=== PATIENT | male | born 1960 | race Caucasian/White ===

== ENCOUNTER 2018-03-12 13:43 | Observation (INO) ==
--- NOTE | 2018-03-12 14:02 | PDOC ---
Abdomen/Flank HPI - General Chief Complaint: Abdomen Pain Stated Complaint: abd pain, return from yesterday Date Seen by Provider: 03/12/18 Time Seen by Provider: 13:48 Source: POSITIVE: Patient, Spouse Exam Limitations: POSITIVE: No limitations Nurse's Notes Reviewed & Considered: Yes - History of Present Illness Initial Comments: This is a well-developed, well-nourished, 57-year-old male, who returns to the emergency room today complaining of worsening abdominal pain. Patient was released last week from a hospital in [place] after being hospitalized for pancreatitis. He spent 3 days in the hospital and then was released. He stayed in [place] for another 3 days with a second visit to the emergency room because of increasing abdominal pain. It was felt at that time that he had normal lipase and that his symptoms were likely related to a virus. He was released to return home to [place] and return here to [place] on March 08. He presented to the emergency room here in [place] yesterday because of increasing abdominal pain. CT scan at that time showed diverticulitis in the left lower quadrant and he was discharged with prescriptions for Augmentin and Flagyl as well as [place]. He was unable to get these prescriptions filled and presented to the emergency room because of increasing pain in the left lower quadrant with radiation throughout his abdomen and into his back. He does have nausea but no vomiting and no diarrhea , denies any hematochezia or hematemesis, no hematuria or dysuria, no fever chills or sweats. He denies headache, no sore throat, no chest pain or shortness of breath, no cough. Body Location Affected: REPORTS: Abdomen Timing: REPORTS: Constant, Getting Worse Duration: >1 week Severity: Severe Quality: REPORTS: "Pain" Abdominal Pain Onset Location: REPORTS: Generalized abdomen Abdominal Pain Radiation: REPORTS: LLQ, Back Context: REPORTS: Other (recent pancreatitis) Modifying Factors: improves with: Nothing Associated Symptoms: REPORTS: Back pain, Loss of Appetite, Nausea, Other (25 lbs weight loss) Similar Symptoms Previously: Yes Recent Care Received: REPORTS: Recently Seen, Treated by MD, Hospitalized Any Prior Injuries Related to Current Complaint?: No - Patient Home Medications Home Medications: Home Medications metformin 500 mg tablet 500 mg PO BID #60 tab 02/15/18 Amoxicillin/Potassium Clav [Augmentin 875-125 Tablet] 1 ea PO BID #20 tab Hydrocodone/Acetaminophen [[place] 5-325 Tablet] 1 ea PO Q4H PRN PRN #10 tab 03/11 Metronidazole [Flagyl] 500 mg PO TID #21 tab 03/11/18 metroNIDAZOLE Tab [Flagyl Tab] 500 mg PO TID #21 tab 03/11/18 - Patient Allergies Allergies/Adverse Reactions: Allergies 3 Allergy/AdvReac Type Severity Reaction Status Date / Time No Known Allergies Allergy Verified 03/12/18 13:50 Past Medical History - heen HEENT History: Denies History Cardiovascular History: Denies History, Other (please comment) Additional Cardiovasular History: 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 Respiratory History: Denies History Gastrointestinal History: Pancreatitis Genitourinary History: Denies History Endocrine History: Type 1 Diabetes, Type 2 Diabetes (oral) Musculoskeletal History: Denies History Neurological History: Denies History Blood Disorders: Denies History Psychiatric History: Denies History Cancer History: Denies History History of MDRO: No In the Past 12 Months, Have Used or Abuse Any Substance: None Previous Surgical History: Yes Type / Date of Surgery: See above Anesthesia Reactions: No Significant Family History: No pertinent family hx ROS - Limitations ROS Limitations: No Limitations Constitution: REPORTS: Weight Loss Cardiovascular: REPORTS: Denies Cardiac Symptoms Respiratory: REPORTS: Denies Resp Symptoms Neurological: REPORTS: Denies Neuro Symptoms Gastrointestinal: REPORTS: Abdominal Pain, Nausea Endocrine: REPORTS: Elevated Glucose, Low Glucose Musculoskeletal: REPORTS: Back Pain Genitourinary: REPORTS: Denies Symptoms Eyes: REPORTS: Denies Symptoms ENT: REPORTS: Denies Symptoms Skin: REPORTS: Denies Skin Symptoms Lympathic: REPORTS: Denies Lympathic Symptoms Immunologic: POSITIVE: Denies Symptoms Psychiatric: POSITIVE: Denies Psych Symptoms Abdominal/Flank Pain PE - General Appearance General Appearance: POSITIVE: Alert, Cooperative, No Evidence of Trauma, Severe Distress - HEENT HEENT: POSITIVE: Head Inspection Nml, Eyes Inspection Nml, Ears Inspection Nml, Nose Inspection Nml, Oral/Dental Inspect. Nml, Pharynx Inspect. Nml, PERRL, EOMI - Neck Neck: POSITIVE: Normal Inspection - Respiratory Respiratory: POSITIVE: No Respiratory Distress, Breath Sounds Normal, Chest Non- Tender - Cardiovascular Cardiovascular: POSITIVE: Regular Rate and Rhythm, Heart Sounds Normal, Strong Pulses Peripheral Pulses: Radial (L): 4+ - Chest Chest: POSITIVE: Non Tender - Abdomen Abdomen: Soft: (All Quadrants), Normal Bowel Sounds: (All Quadrants), No Splenomegaly: (All Quadrants), No Hepatomegaly: (All Quadrants), No Rebound: ( All Quadrants), No Palpable Pulse: (All Quadrants), No Palpabale Mass: (All Quadrants), No Distention: (All Quadrants), Tenderness Noted: (All Quadrants) ( greatest in LLQ w rad to all quads), Guarding: (LLQ), Rigid: (LLQ) - Back Back: POSITIVE: Normal Inspection - Skin Skin: POSITIVE: Intact, Normal For Race, Warm, Dry, No Rash - Extremities Extremity: Non-Tender: (All Extremities), Normal ROM: (All Extremities), Normal Inspection: (All Extremities), Pelvis Stable: (All Extremities) - Neurological Neurological: POSITIVE: Affect Apporpriate, Oriented X3, Motor Normal, Sensation Normal - Psychological Psychiatric: POSITIVE: Affect Appropriate, Mood Appropriate Abdomen Progress - Results Reviewed by me Xrays/CTs/US Reviewed by me: Yes Discussed with Radiologist: Yes Lab Results Reviewed by Me: Yes CBC and BMP: 03/12/18 14:05 03/12/18 14:05 - Patient's Progress Pain Medication Addressed: POSITIVE: Yes Status: POSITIVE: Improved MDM / ED Course: Patient was evaluated, an IV started, blood drawn and sent to the lab for studies, CT of chest and abdomen were obtained. Findings: CBC is within normal limits. Blood gases show pH is 7.46, PCO2 of 33 , bicarbonate 24, base excess of 0. Amylase is 49, lipase is 43. CMP shows a glucose of 223, AST is 17. Lactic acid is 3.1, magnesium is 1.7. CT scan of his chest and abdomen shows no acute cardiopulmonary decompensation with no evidence of previously seen left lower lobe nodule, no acute findings in the abdomen with evidence of chronic pancreatitis present but no acute findings present. Assessment: Abdominal pain Plan: Patient being admitted. - Consult Consult (If Yes, Name of Consulting MD & Time Called): Yes (Dr. Mccarthy) Consulting MD will see pt:: POSITIVE: [facility] [place] Admit Counseled: POSITIVE: Patient, Family, RE: Lab Results, RE: Radiology Results, RE : DX, RE: Need for F/U Patient Care Time - Estimated PCT Patient Care Time (In Minutes): 45 Vital Signs - VS Reviewed Vital Signs Reviewed: Yes Discharge Clinical Impression: Abdominal pain Discharge Disposition: Admit to Inpatient Condition: Stable Date Decision to Admit to Inpatient: 03/12/18 Time Decision to Admit to Inpatient: 16:40
[2018-03-12] MEDS ORDERED: MORPHINE SULFATE 4 MG/1 ML IVP ONE (14:04)
[2018-03-12] MEDS ORDERED: ONDANSETRON 4 MG/2 ML VIAL IVP ONE (14:04)
[2018-03-12] MEDS ORDERED: Sodium Chloride 0.9% 1,000 ML PRIMARY IV ONE ×3 (14:16→14:53)
[2018-03-12] MEDS ORDERED: LORazepam 2 MG/1 ML VIAL IVP ONE (14:16)
[2018-03-12] MEDS ORDERED: LORazepam 2 MG/1 ML VIAL ONE (14:16)
[2018-03-12 14:22] LABS: VENOUS PH 7.46 (7.32-7.42)
[2018-03-12 14:38] LABS: BASOPHILS % (AUTO) 1.8 % (0-1); EOSINOPHILS # (AUTO) 0.21 10*3/UL; EOSINOPHILS % (AUTO) 3.9 % (0-8); Hematocrit [HCT] 42.7 % (42.0-52.0); Hemoglobin [HGB] 14.4 g/dL (14.0-18.0); LYMPHOCYTES # (AUTO) 2.19 10*3/uL; MEAN CORPUSCULAR HGB CONC 33.7 g/dL (33-37); MEAN CORPUSCULAR VOLUME 94.9 FL (80-90); MEAN PLATELET VOLUME 9.8 FL (7.4-12.2); MONOCYTES # (AUTO) 0.29 10*3/UL (0.3-0.8); MONOCYTES % (AUTO) 5.3 % (5-15); NEUTROPHILS # (AUTO) 2.66 10*3/UL; NEUTROPHILS % (AUTO) 48.8 % (50-80)
[2018-03-12 14:41] LABS: PLATELET MORPHOLOGY COMMENT NORMAL MORPHOLOGY (NORM); RBC MORPHOLOGY COMMENT NORMAL MORPHOLOGY (NORM); WBC MORPHOLOGY COMMENT NORMAL MORPHOLOGY (NORM)
[2018-03-12 14:47] LABS: BLOOD UREA NITROGEN 16 mg/dL (7-22); LIPASE 43 IU/L (23-300); SERUM ALBUMIN 4.2 g/dL (3.5-4.8)
[2018-03-12] MEDS ORDERED: Piperacillin/Tazobactam Inj 3.375 GM in Sodium Chloride 0.9% 100 ML IV ONE (16:01)
[2018-03-12] MEDS ORDERED: metroNIDAZOLE 500mg (Premix) 500 MG/100 ML BAG IV ONE (16:01)
--- NOTE | 2018-03-12 16:03 | DI ---
CT Chest W Contrast 03/12/2018 2:04 PM History: [facility] [place]lung nodule Comparison: CT abdomen/pelvis 03/11/2018. Technique: Multiple sequential images were obtained from the thoracic inlet through the lesser trocha nters in the axial, coronal, and sagittal planes. A total of 75 mL of Isovue intravenous contrast mat erial was administered intravenously. Oral contrast material was not also employed. There was no imme diate complication. Findings: Chest: There is no pneumothorax, consolidation, or pleural effusion. The left lower lobe pulmonary nodule no naty in the prior exam is no longer present, most likely representing artifact from atelectasis. Bibas ilar dependent subpleural groundglass opacities and linear densities most likely represent atelectasi s in the absence of additional clinical history. Subpleural cysts are noted in the upper lungs bilate rally, favored to represent paraseptal emphysema. The thyroid demonstrates normal CT morphology. There is no hilar or mediastinal lymphadenopathy. Hear t size is normal without pericardial effusion. The great vessels demonstrate normal course and calibe r with scattered atheromatous aortic calcifications. The trachea and central airways are patent. The esophagus follows a normal course and caliber. No axillary lymphadenopathy. Extrathoracic soft tissues are within normal limits. Multilevel degener ative disc disease of the thoracic spine is noted. There are degenerative changes of the bilateral ac romioclavicular and left glenohumeral joints. Abdomen/Pelvis: Coarse calcifications are again noted in the pancreas, a finding most commonly associated with chroni c pancreatitis. The liver, gallbladder, spleen, adrenal glands, and kidneys are normal in appearance. Hollow viscus organs demonstrate normal course and caliber. There is no free intraperitoneal air or f luid. The appendix is well-visualized and is normal. There is no abdominopelvic lymphadenopathy. The abdominal mesentery and great vessels are unremarkable. The ureters and urinary bladder are normal appearance without evidence of obstructive uropathy. The p rostate is mildly enlarged and contains coarse calcifications. The osseous structures are not significantly changed. There are no aggressive osseous lesions. Impression: 1. No CT evidence of acute cardiopulmonary or intra-abdominal/pelvic pathology. 2. The left lower lobe nodule noted on the comparison CT is not present on this exam. 3. The borderline wall thickening of the colon noted on the comparison examination is not present on this exam. 4. The remainder of the abdomen/pelvis exam is not significantly changed.
[2018-03-12] MEDS ORDERED: LIDOCAINE W/ SODIUM BICARB 0.5 ML SYR SUBD PRN (17:40)
[2018-03-12] MEDS ORDERED: CALCIUM CARBONATE 500 MG (TUMS) CHEWABLE TABLET PO PRN (17:40)
[2018-03-12] MEDS ORDERED: ACETAMINOPHEN 325 MG TABLET PO PRN (17:40)
[2018-03-12] MEDS ORDERED: ONDANSETRON 4 MG/2 ML VIAL IVP PRN (17:40)
[2018-03-12] MEDS ORDERED: DOCUSATE 100 MG CAPSULE PO PRN (17:40)
[2018-03-12 17:43] LABS: BILIRUBIN,URINE NEGATIVE (NEG); CLARITY,URINE CLEAR (CLEAR); COLOR,URINE YELLOW (Y); GLUCOSE, URINE (UA) 250 mg/dL (NEG); OCCULT BLOOD,URINE NEGATIVE (NEG); PROTEIN,URINE NEGATIVE (NEG); UROBILINOGEN,URINE 0.2 EU/dL (0.2)
[2018-03-12] MEDS: Sodium Chloride 0.9% 1,000 ML PRIMARY IV SCH ×2 (17:50→21:08)
[2018-03-12 17:59] LABS: URINE SAMPLE TYPE CLEAN CATCH
[2018-03-12 18:00] LABS: AMPHETAMINE SCREEN POSITIVE (NEG); CANNABINOID SCREEN,URINE NEGATIVE (NEG); COCAINE SCREEN NEGATIVE (NEG); METHADONE URINE SCREEN NEGATIVE (NEG); METHAMPHETAMINES SCREEN,URINE POSITIVE (NEG); OPIATE SCREEN,URINE POSITIVE (NEG); URINE SPECIFIC GRAVITY - MAN 1.015
[2018-03-12 18:16] LABS: URINE SAMPLE TYPE CLEAN CATCH URINE
[2018-03-12] MEDS: HYDROmorphone 2 MG/1 ML IVP PRN (18:42)
--- NOTE | 2018-03-12 19:17 | PDOC ---
HPI - History of Present Illness Date of Service: 03/12/18 Time of Service: 19:12 Chief Complaint: Abdominal pain History of Present Illness: This very pleasant 57-year-old male who recently had a bout of acute pancreatitis in [place], of unclear etiology with normal triglycerides on my review of the records, no recent alcohol use, and presumably normal gallbladder by CT scan there. He also notably has diabetes mellitus type II that was diagnosed over the summer and smokes tobacco. He comes in accompanied by his with complaint of worsening abdominal pain and repeat CT scan today showed resolution of bowel wall thickening that was noted on yesterday's CT scan. He was diagnosed with colitis history placed on Augmentin and Flagyl which really have not made a difference in his abdominal pain at all. Denies any fever. He states that his pain is located in the umbilical/periumbilical area. He's had nausea and vomiting with it but no diarrhea. He did not have any nausea or vomiting when his abdominal pain started in [place] however. The patient states she's never had pancreatitis before but he gets frequent onset of back pain sometimes with radiating discomfort into the legs but not always. There is been no association with food and the patient's states that she has been keeping close watch of this. Morphine makes the pain better. He is unclear what makes it worse. He has never had abdominal surgery. Today's CT scan showed calcifications although there were no reports of calcifications in [place] on their CT scan results. No abdominal MRI scan was done although total bilirubin has been consistently elevated in the 1.4-2.4 range. Liver enzymes have been normal throughout this episode and lipase and amylase were not elevated on today's admission although lipase was in the 2000s range in [place]. He denied any drug use to me although his urine drug screen is positive for amphetamines Past Medical History Medical History: 1. DMII, no complications, well controlled, recent HbA1c at 7.1 %. 2. tobacco abuse. 3. recent pancreatitis Surgical History: 1. arm surgery. 2. GAS abscess on neck drained with I and D in 2007. Pertinent Family History: father of complications of diabetes mellitus Tobacco Use: Current Every Day Smoker Do you dip or chew tobacco: No In the Past 12 Months, Have Used or Abuse Any of the Following Substance: None Alcohol Use: Rarely Medication / Allergies Home Medications: Home Medications 3 Medication Instructions Recorded Confirmed Type metformin 500 mg tablet 500 mg PO BID #60 tab 02/15/18 03/12/18 Rx Amoxicillin/Potassium Clav 1 ea PO BID #20 tab 03/11/18 03/12/18 Rx [Augmentin 875-125 Tablet] Hydrocodone/Acetaminophen [[place] 1 ea PO Q4H PRN PRN #10 tab 03/11/18 03/12/18 Rx 5-325 Tablet] Metronidazole [Flagyl] 500 mg PO TID #21 tab 03/11/18 03/12/18 Rx metroNIDAZOLE Tab [Flagyl Tab] 500 mg PO TID #21 tab 03/11/18 03/12/18 Rx Allergies/Adverse Reactions: Allergies 3 Allergy/AdvReac Type Severity Reaction Status Date / Time No Known Allergies Allergy Verified 03/12/18 13:50 Review of Systems - Review of Systems All Systems: Reviewed & No Additional Complaints Except as Stated (I did a 12 point review of systems and it was negative other than that described in the history of present illness, with exceptions noted below.) - Gastrointestinal Gastrointestinal / Abdominal: REPORTS: Nausea, Abdominal Pain Exam - Vitals Vital Signs: Vital Signs Temperature 97.5 F Temperature Source Temporal Artery Scan Pulse Rate [Pulse Oximeter 55 Right] Pulse Rate 70 Respiratory Rate 17 Blood Pressure [Left Arm] 108/71 Blood Pressure 114/70 Pulse Ox 91 Oxygen Delivery Method Room Air Height 5 ft 10 in Weight 157 lb 4 oz - General General Appearance: No Acute Distress, Cooperative - Head Head Exam: Normal Inspection, Normocephalic, Atraumatic - Eye Eye Exam: POSITIVE: No Scleral Icterus - ENT ENT Exam: POSITIVE: Mucous Membranes Dry - Neck Neck Exam: Normal Inspection, No Lymphadenopathy, No Thyromegaly, JVP is not Raised - Respiratory Respiratory Exam: POSITIVE: Clear to Auscultation - Bilaterally, Breathing Non Labored, Normal to Percussion and Palpation - Cardiovascular Cardiovascular Exam: POSITIVE: RRR, No Murmur, No Clicks, No Gallops, No Rubs, No JVD - GI/Abdominal GI/Abdominal Exam: POSITIVE: Normal Bowel Sounds, Non Distended, Soft Additional GI/Abdominal Exam Details: somewhat tender to palpation - Rectal Rectal Exam: POSITIVE: Deferred - External Exam: POSITIVE: Deferred Exam: POSITIVE: Deferred - Extremities Extremities Exam: POSITIVE: No Clubbing Present, No Edema Present, No Cyanosis Present - Back Back Exam: POSITIVE: Normal Inspection, No CVA Tenderness - Neurological Neurological Exam: POSITIVE: Alert, Oriented x 3, No Facial Droop, Speech Intact / Clear, Moves All Extremities Equally - Psychiatric Psychiatric Exam: POSITIVE: Flat Affect - Integumentary Integumentary Exam: POSITIVE: Normal Color, Warm, Dry, Intact Results - Labs CBC and BMP: 03/12/18 14:05 03/12/18 14:05 Additional Lab Results: Laboratory Results 03/12/18 03/12/18 03/12/18 Range/Units 14:05 14:05 14:05 WBC 5.45 (4.8-10.8) 10^3/uL RBC 4.50 L (4.70-6.10) 10^6/uL Hgb 14.4 (14.0-18.0) g/dL Hct 42.7 (42.0-52.0) % MCV 94.9 H (80-90) FL MCH 32.0 H (27-31) PG MCHC 33.7 (33-37) g/dL RDW Std Deviation 42.9 (39-50) fL RDW Coeff of Will 12.5 (11.5-14.5) % Plt Count 284 (140-350) 10*3/uL MPV 9.8 (7.4-12.2) FL Immature Gran % (Auto) 0 (0-5) % Neut % (Auto) 48.8 L (50-80) % Lymph % (Auto) 40.2 (10-50) % [place] % (Auto) 5.3 (5-15) % Eos % (Auto) 3.9 (0-8) % Baso % (Auto) 1.8 H (0-1) % Immature Gran # (Auto) 0 10*3/UL Neut # (Auto) 2.66 10*3/UL Lymph # (Auto) 2.19 10*3/uL [place] # (Auto) 0.29 L (0.3-0.8) 10*3/UL Eos # (Auto) 0.21 10*3/UL Baso # (Auto) 0.10 10*3/UL WBC Morphology Comment Normal morphology (NORM) Plt Morphology Comment Normal morphology (NORM) RBC Morph Comment Normal morphology (NORM) VBG pH (7.32-7.42) VBG pCO2 (45-55) mmHg VBG HCO3 (22-26) mmol/L VBG Base Excess (-2-2) MMOL/L Sodium 139 (135-145) meq/L Potassium 4.2 (3.8-5.2) meq/L Chloride 104 (98-112) meq/L Carbon Dioxide 25 (23-33) meq/L Anion Gap 10 (5-20) BUN 16 (7-22) mg/dL Creatinine 0.8 (0.70-1.50) mg/dL Estimated GFR > 60 (>60 ml/min/1.73m(2)) BUN/Creatinine Ratio 20.00 (6-20) Glucose 223 H (78-110) mg/dL Calculated Osmolality 295.0 H (267-292) mOsm/kg Lactic Acid 3.1 H (0.70-2.10) MMOL/L Calcium 8.7 (8.7-10.7) mg/dL Magnesium 1.7 (1.6-2.4) mg/dL Total Bilirubin 0.7 (0.3-1.2) mg/dL AST 17 L (21-57) IU/L ALT 27 (21-72) IU/L Alkaline Phosphatase 46 (38-126) IU/L C-Reactive Protein < 0.5 (0.0-0.9) mg/dL Total Protein 6.7 (6.1-8.0) g/dL Albumin 4.2 (3.5-4.8) g/dL Globulin 2.6 (2.50-4.10) g/dL Albumin/Globulin Ratio 1.60 (1.3-2.0) mg/g Amylase 49 (30-110) U/L Lipase 43 (23-300) IU/L Ur Collection Type Urine Color (Y) Urine Clarity (CLEAR) Urine pH (5.0-8.5) Ur Specific [place] (1.005-1.030) U Specif Grav (Refrac) Urine Protein (NEG) mg/dl Urine Glucose (UA) (NEG) mg/dL Urine Ketones (NEG) Urine Occult Blood (NEG) Urine Nitrate (NEG) Urine Bilirubin (NEG) Urine Urobilinogen (0.2) EU/dL Ur Leukocyte Esterase (NEG) Ur Culture Indicated? Urine Opiates Screen (NEG) Ur Buprenorphine (NEG) Ur Oxycodone Screen (NEG) Urine Methadone Screen (NEG) Ur Propoxyphene Screen (NEG) Barbiturate Screen (NEG) U Tricyclic Antidepress (NEG) Phencyclidine Screen (NEG) Amphetamines Screen (NEG) U Methamphetamines Scrn (NEG) Benzodiazepines Screen (NEG) Cocaine Screen (NEG) U Marijuana (THC) Screen (NEG) 03/12/18 03/12/18 03/12/18 Range/Units 14:20 17:30 17:40 WBC (4.8-10.8) 10^3/uL RBC (4.70-6.10) 10^6/uL Hgb (14.0-18.0) g/dL Hct (42.0-52.0) % MCV (80-90) FL MCH (27-31) PG MCHC (33-37) g/dL RDW Std Deviation (39-50) fL RDW Coeff of Will (11.5-14.5) % Plt Count (140-350) 10*3/uL MPV (7.4-12.2) FL Immature Gran % (Auto) (0-5) % Neut % (Auto) (50-80) % Lymph % (Auto) (10-50) % [place] % (Auto) (5-15) % Eos % (Auto) (0-8) % Baso % (Auto) (0-1) % Immature Gran # (Auto) 10*3/UL Neut # (Auto) 10*3/UL Lymph # (Auto) 10*3/uL [place] # (Auto) (0.3-0.8) 10*3/UL Eos # (Auto) 10*3/UL Baso # (Auto) 10*3/UL WBC Morphology Comment (NORM) Plt Morphology Comment (NORM) RBC Morph Comment (NORM) VBG pH 7.46 H (7.32-7.42) VBG pCO2 33 L (45-55) mmHg VBG HCO3 24 (22-26) mmol/L VBG Base Excess 0 (-2-2) MMOL/L Sodium (135-145) meq/L Potassium (3.8-5.2) meq/L Chloride (98-112) meq/L Carbon Dioxide (23-33) meq/L Anion Gap (5-20) BUN (7-22) mg/dL Creatinine (0.70-1.50) mg/dL Estimated GFR (>60 ml/min/1.73m(2)) BUN/Creatinine Ratio (6-20) Glucose (78-110) mg/dL Calculated Osmolality (267-292) mOsm/kg Lactic Acid (0.70-2.10) MMOL/L Calcium (8.7-10.7) mg/dL Magnesium (1.6-2.4) mg/dL Total Bilirubin (0.3-1.2) mg/dL AST (21-57) IU/L ALT (21-72) IU/L Alkaline Phosphatase (38-126) IU/L C-Reactive Protein (0.0-0.9) mg/dL Total Protein (6.1-8.0) g/dL Albumin (3.5-4.8) g/dL Globulin (2.50-4.10) g/dL Albumin/Globulin Ratio (1.3-2.0) mg/g Amylase (30-110) U/L Lipase (23-300) IU/L Ur Collection Type Clean catch urine Clean catch Urine Color Yellow (Y) Urine Clarity Clear (CLEAR) Urine pH 5.0 (5.0-8.5) Ur Specific [place] 1.015 (1.005-1.030) U Specif Grav (Refrac) 1.015 Urine Protein Negative (NEG) mg/dl Urine Glucose (UA) 250 (NEG) mg/dL Urine Ketones Negative (NEG) Urine Occult Blood Negative (NEG) Urine Nitrate Negative (NEG) Urine Bilirubin Negative (NEG) Urine Urobilinogen 0.2 (0.2) EU/dL Ur Leukocyte Esterase Negative (NEG) Ur Culture Indicated? Culture not set Urine Opiates Screen Positive H (NEG) Ur Buprenorphine Negative (NEG) Ur Oxycodone Screen Negative (NEG) Urine Methadone Screen Negative (NEG) Ur Propoxyphene Screen Negative (NEG) Barbiturate Screen Negative (NEG) U Tricyclic Antidepress Negative (NEG) Phencyclidine Screen Negative (NEG) Amphetamines Screen Positive H (NEG) U Methamphetamines Scrn Positive H (NEG) Benzodiazepines Screen Positive H (NEG) Cocaine Screen Negative (NEG) U Marijuana (THC) Screen Negative (NEG) - Imaging Status: Image Reviewed by Me (I reviewed the image. there may be some calcification in the head of the pancreas), Report Reviewed by Me (CT scan notable for chronic pancreatitis) Assessment and Plan - Patient Problems (1) Abdominal pain Current Visit: Yes Status: Acute Code(s): R10.9 - Unspecified abdominal pain (2) Diabetes mellitus Current Visit: Yes Status: Acute Code(s): E11.9 - Type 2 diabetes mellitus without complications Qualifiers: Diabetes mellitus type: type 2 Diabetes mellitus complication status: without complication (3) Tobacco abuse Current Visit: Yes Status: Acute Code(s): Z72.0 - Tobacco use - Assessment / Plan Additional Assessment/Plan Details: admit the patient, treat for acute pancreatitis with IV fluids/pain medications / antiemetics check Lipase in AM check ultrasound for stones/sludge check MRI abdomen to look for CBD blockage, hopefully anatomic features of pancreas consult surgery--question best management here, whether gall bladder needs to come out? check IgE level I don't really think the patient has colitis or diverticulitis. He is afebrile , has a normal white blood cell count and he really isolated this pain in the periumbilical area.
[2018-03-13] MEDS: HYDROmorphone 2 MG/1 ML IVP PRN ×5 (00:37→14:53)
[2018-03-13] MEDS: Sodium Chloride 0.9% 1,000 ML PRIMARY IV SCH (04:58)
[2018-03-13 05:54] LABS: BASOPHILS # (AUTO) 0.09 10*3/UL; BASOPHILS % (AUTO) 1.9 % (0-1); EOSINOPHILS # (AUTO) 0.22 10*3/UL; EOSINOPHILS % (AUTO) 4.7 % (0-8); Hematocrit [HCT] 40.6 % (42.0-52.0); Hemoglobin [HGB] 13.1 g/dL (14.0-18.0); LYMPHOCYTES # (AUTO) 2.17 10*3/uL; MEAN CORPUSCULAR HEMOGLOBIN 31.2 PG (27-31); MEAN CORPUSCULAR HGB CONC 32.3 g/dL (33-37); MEAN CORPUSCULAR VOLUME 96.7 FL (80-90); MEAN PLATELET VOLUME 9.6 FL (7.4-12.2); MONOCYTES # (AUTO) 0.28 10*3/UL (0.3-0.8); MONOCYTES % (AUTO) 5.9 % (5-15); NEUTROPHILS # (AUTO) 1.96 10*3/UL; NEUTROPHILS % (AUTO) 41.5 % (50-80)
[2018-03-13 06:04] LABS: BLOOD UREA NITROGEN 13 mg/dL (7-22); BUN/CREATININE RATIO 18.57 (6-20); SERUM ALBUMIN 3.4 g/dL (3.5-4.8)
[2018-03-13 06:16] LABS: PLATELET MORPHOLOGY COMMENT NORMAL MORPHOLOGY (NORM); RBC MORPHOLOGY COMMENT NORMAL MORPHOLOGY (NORM); WBC MORPHOLOGY COMMENT NORMAL MORPHOLOGY (NORM)
[2018-03-13 08:01] VITALS: RESP 16
[2018-03-13] MEDS ORDERED: Sertraline Tab 50 MG TAB PO SCH (09:00)
--- NOTE | 2018-03-13 09:52 | DI ---
US Abdomen Limited 03/13/2018 7:00 AM History: [facility] – [place], [place] DI ^pancreatitis, question cholelithiasis or CBD issue Comparison: MRI abdomen from the same day; CT abdomen/pelvis 03/12/2018, 03/11/2018. Procedure: Aparicio scale and color doppler right upper quadrant ultrasound. Findings: The liver is normal in size, echogenicity, and echotexture. There are no focal lesions vis ualized. The gallbladder is normal, without evidence of stones or pericholecystic fluid. There is a n ormal gallbladder wall measuring 2 mm. A sonographic Carl's sign could not be assessed as the patie nt had been given pain medication. The common duct measures 6 mm. There is no intrahepatic biliary du ctal dilatation. The pancreas is not visualized due to shadowing bowel gas. The right kidney measures 12.2 cm in lengt h. No hydronephrosis, calculi, or masses are appreciated. There is no free fluid seen within the hep atorenal space. Impression: No cholelithiasis or sonographic evidence of acute cholecystitis.
--- NOTE | 2018-03-13 09:57 | DI ---
MRI Abdomen WO Contrast 03/13/2018 5:43 AM [place] [facility] [place]PANCREATITIS,QUESTION CBD OBSTRUCTION Technique: Multiplanar multi-sequential noncontrast imaging of the abdomen was performed. In and oppo sed phased imaging, as well as MRCP was performed. Comparison: CT abdomen/pelvis 03/12/2018, 03/11/2018. Findings: Normal liver size and contour without mass, infiltrating process, or abnormal signal alteration. Normal gallbladder without wall thickening or a filling defect. Normal common bile duct and intrahepa tic bile ducts. Normal alonzo hepatis. Normal pancreas without enlargement or mass. Normal pancreatic duct. Normal splenic size and contour. No masses. Normal adrenal glands. Normal right kidney size and contour. No masses, cysts, or hydronephrosis. Normal perinephric space. Normal left kidney size and contour. No masses, cysts, or hydronephrosis. Normal perinephric space. Normal abdominal aorta. Normal retroperitoneum without abnormally enlarged lymphadenopathy or inflammation. Normal mesentery without pathologic adenopathy or evidence of inflammation. No ascites. Normal abdominal wall structures with no demonstrated hernias. Impression: No MR evidence to explain the patient's worsening abdominal pain.
[2018-03-13 11:56] VITALS: BP 137/81; TEMP 98.6; O2SAT 97
[2018-03-13] MEDS ORDERED: LIPASE/PROTEASE/AMYLASE 1 EACH CAPSULE PO ONE (12:46)
--- NOTE | 2018-03-13 12:50 | CONSULT ---
Consult Note - Consult Consult Date: 03/13/18 Reason for Consult: PreOp Consulation : General Surgery Requesting Physician: Dr. Aguilar Primary Care Provider: Mookie Dumont MD - History of Present Illness History of Present Illness: This 57-year-old male who comes in the hospital after 2 workups for abdominal pain. Patient states that the pain started in his right side, were cross midportion of his abdomen. Comes on after eating. Patient was hospitalized in [place] for acute pancreatitis within [address] scan now shows that he has calcifications the pancreas indicating chronic pancreatitis. Patient ultrasound showed no evidence cholelithiasis. He had a MRI that shows no common duct stones. Pancreatic ducts are not dilated and there is no stones with the pancreatic ducts. Again the MRI shows calcifications. There is no hematochezia hematemesis or melena currently. Past Medical History Medical History: 1. DMII, no complications, well controlled, recent HbA1c at 7.1 %. 2. tobacco abuse. 3. recent pancreatitis Surgical History: 1. arm surgery. 2. GAS abscess on neck drained with I and D in 2007. Pertinent Family History: father of complications of diabetes mellitus Tobacco Use: Current Every Day Smoker Do you dip or chew tobacco: No In the Past 12 Months, Have Used or Abuse Any of the Following Substance: None Alcohol Use: Rarely Medication / Allergies Home Medications: Home Medications 3 Medication Instructions Recorded Confirmed Type metformin 500 mg tablet 500 mg PO BID #60 tab 02/15/18 03/12/18 Rx Amoxicillin/Potassium Clav 1 ea PO BID #20 tab 03/11/18 03/12/18 Rx [Augmentin 875-125 Tablet] Hydrocodone/Acetaminophen [[place] 1 ea PO Q4H PRN PRN #10 tab 03/11/18 03/12/18 Rx 5-325 Tablet] Metronidazole [Flagyl] 500 mg PO TID #21 tab 03/11/18 03/12/18 Rx metroNIDAZOLE Tab [Flagyl Tab] 500 mg PO TID #21 tab 03/11/18 03/12/18 Rx Allergies/Adverse Reactions: Allergies 3 Allergy/AdvReac Type Severity Reaction Status Date / Time No Known Allergies Allergy Verified 03/12/18 13:50 Results - Labs CBC and BMP: 03/13/18 05:40 03/13/18 05:40 Exam - Vitals Vital Signs: Vital Signs Temperature 98.6 F Temperature Source Temporal Artery Scan Pulse Rate [Pulse Oximeter 64 Right] Pulse Rate 55 Respiratory Rate 16 Blood Pressure [Left Arm] 137/81 Blood Pressure 114/70 Pulse Ox 97 Oxygen Flow Rate 2.5 Oxygen Delivery Method Nasal Cannula Height 5 ft 10 in Weight 157 lb 4 oz - Respiratory Respiratory Exam: POSITIVE: Clear to Auscultation - Bilaterally, Breathing Non Labored - Cardiovascular Cardiovascular Exam: POSITIVE: RRR - GI/Abdominal GI/Abdominal Exam: POSITIVE: Normal Bowel Sounds, Non Tender, Non Distended, Soft Assessment and Plan - Patient Problems (1) Chronic pancreatitis Current Visit: Yes Status: Acute Code(s): K86.1 - Other chronic pancreatitis - Assessment / Plan Additional Assessment/Plan Details: I have reviewed the CT scans with Dr. Armstrong and the patient has chronic pancreatitis is no evidence of diverticulitis. There is no evidence perforated bowel. This point allergy for chronic pancreatitis and giving Pancrease before each meals
--- NOTE | 2018-03-13 15:23 | DCSUMMARY ---
Hospitalization Summary Admit Date: 03/12/2018 Discharge Date: 03/13/18 Primary Diagnosis:: abdominal pain with acute flare of chronic pancreatitis Hospital Course: Very pleasant 57-year-old male that was admitted with abdominal pain, nausea and vomiting despite normal lipase, and amylase. CT scan revealed evidence of chronic pancreatitis. I did do an ultrasound of the gallbladder to look at this as a potential source of pancreatitis but it was negative for cholelithiasis and no evidence of common bile duct obstruction was seen on MRI of the abdomen. The patient's pain did resolve and he was able to eat prior to discharge. I did get a surgical consultation to make sure there was no evidence of any other potential surgical issues. They did not feel that this was a surgical abdomen. A drug screen did reveal a positive for methamphetamines and I think that was probably the cause of this event. We talked about this and the patient states that he is trying to quit and is trying to clean up his habits. He states that he had a relapse in relation to a family member/friend passing on here recently. He was not able to attend the and that really upset him. We talked about this at length, I think the patient is motivated to quit and hopefully will seek continued resources to do so. We did advance the patient to pancreatic enzymes and a meal, and he tolerated that very well with no increase in abdominal pain and no nausea or vomiting. He denies any chest pain or shortness breath today and is ready to go home. In terms of his diabetes, he has not been tolerating metformin due to abdominal complaints think given chronic pancreatitis it would be best to move on to new medication. He is well controlled enough at this point that I think he can diet control for now and I'll defer any further medications for his diabetes to his primary physician, Dr. Saab. Assessment and Plan: 1. As per discharge assessments noted 2. Disposition: Patient is discharged home. 3. Condition on discharge, stable and improved. 4. Diet: regular diet 5. Activities: resume normal activities, but no alcohol or drug use 6. Follow-Up: 1. Dr. Saab in 1 week 7. Medications at the Time of Discharge: Home Medications 3 Medication Instructions Recorded Confirmed Type Hydrocodone/Acetaminophen [[place] 1 ea PO Q4H PRN PRN #10 tab 03/11/18 03/12/18 Rx 5-325 Tablet] Amylase/Lip/Prot 80837 Cap [Creon 1 cap PO TID MEALS #90 cap 03/13/18 Rx 20112 Cap] I think the patient can stop his hydrocodone. This was from a prior prescription. Exam - Vitals Vital Signs: Vital Signs Vital Signs - Last Taken Temperature 98.6 F 03/13/18 11:56 Pulse Rate 63 03/13/18 15:00 Respiratory Rate 16 03/13/18 11:56 Blood Pressure 137/81 03/13/18 11:56 Pulse Ox 97 03/13/18 11:56 Height 5 ft 10 in Weight 157 lb 4 oz - General General Appearance: No Acute Distress, Cooperative - Head Head Exam: Atraumatic - Eye Eye Exam: POSITIVE: No Scleral Icterus - ENT ENT Exam: POSITIVE: Mucous Membranes Moist - Respiratory Respiratory Exam: POSITIVE: Clear to Auscultation - Bilaterally, Breathing Non Labored - Cardiovascular Cardiovascular Exam: POSITIVE: RRR, No Murmur, No Clicks, No Gallops, No Rubs, No JVD - GI/Abdominal GI/Abdominal Exam: POSITIVE: Normal Bowel Sounds, Non Tender, Non Distended, Soft - Extremities Extremities Exam: POSITIVE: No Clubbing Present, No Edema Present, No Cyanosis Present - Neurological Neurological Exam: POSITIVE: Alert, Oriented x 3, No Facial Droop, Speech Intact / Clear, Moves All Extremities Equally - Psychiatric Psychiatric Exam: POSITIVE: Flat Affect Data Peritnent Studies: Laboratory Results 3 03/12/18 03/12/18 03/13/18 17:30 17:40 05:40 WBC 4.72 L RBC 4.20 L Hgb 13.1 L Hct 40.6 L MCV 96.7 H MCH 31.2 H MCHC 32.3 L RDW Std Deviation 43.0 RDW Coeff of Will 12.5 Plt Count 251 MPV 9.6 Immature Gran % (Auto) 0 Neut % (Auto) 41.5 L Lymph % (Auto) 46.0 [place] % (Auto) 5.9 Eos % (Auto) 4.7 Baso % (Auto) 1.9 H Immature Gran # (Auto) 0 Neut # (Auto) 1.96 Lymph # (Auto) 2.17 [place] # (Auto) 0.28 L Eos # (Auto) 0.22 Baso # (Auto) 0.09 WBC Morphology Comment Normal morphology Plt Morphology Comment Normal morphology RBC Morph Comment Normal morphology Sodium Potassium Chloride Carbon Dioxide Anion Gap BUN Creatinine Estimated GFR BUN/Creatinine Ratio Glucose Calculated Osmolality Lactic Acid Calcium Total Bilirubin AST ALT Alkaline Phosphatase Total Protein Albumin Globulin Albumin/Globulin Ratio Lipase Ur Collection Type Clean catch urine Clean catch Urine Color Yellow Urine Clarity Clear Urine pH 5.0 Ur Specific [place] 1.015 U Specif Grav (Refrac) 1.015 Urine Protein Negative Urine Glucose (UA) 250 Urine Ketones Negative Urine Occult Blood Negative Urine Nitrate Negative Urine Bilirubin Negative Urine Urobilinogen 0.2 Ur Leukocyte Esterase Negative Ur Culture Indicated? Culture not set Urine Opiates Screen Positive H Ur Buprenorphine Negative Ur Oxycodone Screen Negative Urine Methadone Screen Negative Ur Propoxyphene Screen Negative Barbiturate Screen Negative U Tricyclic Antidepress Negative Phencyclidine Screen Negative Amphetamines Screen Positive H U Methamphetamines Scrn Positive H Benzodiazepines Screen Positive H Cocaine Screen Negative U Marijuana (THC) Screen Negative 3 03/13/18 03/13/18 03/13/18 05:40 09:05 09:05 WBC RBC Hgb Hct MCV MCH MCHC RDW Std Deviation RDW Coeff of Will Plt Count MPV Immature Gran % (Auto) Neut % (Auto) Lymph % (Auto) [place] % (Auto) Eos % (Auto) Baso % (Auto) Immature Gran # (Auto) Neut # (Auto) Lymph # (Auto) [place] # (Auto) Eos # (Auto) Baso # (Auto) WBC Morphology Comment Plt Morphology Comment RBC Morph Comment Sodium 140 Potassium 4.1 Chloride 107 Carbon Dioxide 28 Anion Gap 5 BUN 13 Creatinine 0.7 Estimated GFR > 60 BUN/Creatinine Ratio 18.57 Glucose 118 H Calculated Osmolality 290.0 Lactic Acid 0.7 Calcium 8.0 L Total Bilirubin 1.1 AST 16 L ALT 34 Alkaline Phosphatase 40 Total Protein 5.8 L Albumin 3.4 L Globulin 2.4 L Albumin/Globulin Ratio 1.40 Lipase 21 L Ur Collection Type Urine Color Urine Clarity Urine pH Ur Specific [place] U Specif Grav (Refrac) Urine Protein Urine Glucose (UA) Urine Ketones Urine Occult Blood Urine Nitrate Urine Bilirubin Urine Urobilinogen Ur Leukocyte Esterase Ur Culture Indicated? Urine Opiates Screen Ur Buprenorphine Ur Oxycodone Screen Urine Methadone Screen Ur Propoxyphene Screen Barbiturate Screen U Tricyclic Antidepress Phencyclidine Screen Amphetamines Screen U Methamphetamines Scrn Benzodiazepines Screen Cocaine Screen U Marijuana (THC) Screen Procedures: [address] [facility]. [facility] [place] [address] PH: DD: [phone] FAX: [phone] ~DIAGNOSTIC IMAGING REPORT~ Patient: ChrisOsvaldo : 1960 Sex: M Age: 57 Exam Name: US Abdomen Limited Exam Date: 03/13/18 Report # : [id number] CPT Code: 28309 EMR/MR #: [id number] Ordering: FREDDY LAL Admiting: FREDDY LAL DO Primary: Mookie Dumont MD Attending: FREDDY LAL DO Signed US Abdomen Limited 03/13/2018 7:00 AM History: [facility] [place]pancreatitis, question cholelithiasis or CBD issue Comparison: MRI abdomen from the same day; CT abdomen/pelvis 03/12/2018, 2017. Procedure: Aparicio scale and color doppler right upper quadrant ultrasound. Findings: The liver is normal in size, echogenicity, and echotexture. There are no focal lesions visualized. The gallbladder is normal, without evidence of stones or pericholecystic fluid. There is a normal gallbladder wall measuring 2 mm. A sonographic Carl's sign could not be assessed as the patient had been given pain medication. The common duct measures 6 mm. There is no intrahepatic biliary ductal dilatation. The pancreas is not visualized due to shadowing bowel gas. The right kidney measures 12.2 cm in length. No hydronephrosis, calculi, or masses are appreciated. There is no free fluid seen within the hepatorenal space. Impression: No cholelithiasis or sonographic evidence of acute cholecystitis. Dictated By: 03/13/18 0940 YUSUF LEWIS MD. Signed By: 03/13/18 0952 YUSUF LEWIS MD. [address] [facility] [place] [address] PH: DD: [phone] FAX: [phone] ~DIAGNOSTIC IMAGING REPORT~ Patient: Osvaldo Perez : 1960 Sex: M Age: 57 Exam Name: MRI Abdomen WO Contrast Exam Date: 03/13/18 Report # : [id number] CPT Code: 15249 EMR/MR #: [id number] Ordering: FREDDY LAL Admiting: FREDDY LAL DO Primary: Mookie Dumont MD Attending: FREDDY LAL DO Signed MRI Abdomen WO Contrast 03/13/2018 5:43 AM History: [facility] [place] [facility] ^PANCREATITIS,QUESTION CBD OBSTRUCTION Technique: Multiplanar multi-sequential noncontrast imaging of the abdomen was performed. In and opposed phased imaging, as well as MRCP was performed. Comparison: CT abdomen/pelvis 03/12/2018, 03/11/2018. Findings: Normal liver size and contour without mass, infiltrating process, or abnormal signal alteration. Normal gallbladder without wall thickening or a filling defect. Normal common bile duct and intrahepatic bile ducts. Normal alonzo hepatis. Normal pancreas without enlargement or mass. Normal pancreatic duct. Normal splenic size and contour. No masses. Normal adrenal glands. Normal right kidney size and contour. No masses, cysts, or hydronephrosis. Normal perinephric space. Normal left kidney size and contour. No masses, cysts, or hydronephrosis. Normal perinephric space. Normal abdominal aorta. Normal retroperitoneum without abnormally enlarged lymphadenopathy or inflammation. Normal mesentery without pathologic adenopathy or evidence of inflammation. No ascites. Normal abdominal wall structures with no demonstrated hernias. Impression: No MR evidence to explain the patient's worsening abdominal pain. Dictated By: 03/13/18 0947 YUSUF LEWIS MD. Signed By: 03/13/18 0957 YUSUF LEWIS MD. [address] [facility] [place] [address] PH: DD: [phone] FAX: [phone] ~DIAGNOSTIC IMAGING REPORT~ Patient: Osvaldo Perez : 1960 Sex: M Age: 57 Exam Name: CT Chest W Contrast Exam Date: 03/12/18 Report # : [id number] CPT Code: 28139 EMR/MR #: [id number] Ordering: Brayan Todd Admiting: Primary: Mookie Dumont MD Attending: Signed CT Chest W Contrast 03/12/2018 2:04 PM History: [facility] [place] [facility] ^lung nodule Comparison: CT abdomen/pelvis 03/11/2018. Technique: Multiple sequential images were obtained from the thoracic inlet through the lesser trochanters in the axial, coronal, and sagittal planes. A total of 75 mL of Isovue intravenous contrast material was administered intravenously. Oral contrast material was not also employed. There was no immediate complication. Findings: Chest: There is no pneumothorax, consolidation, or pleural effusion. The left lower lobe pulmonary nodule noted in the prior exam is no longer present, most likely representing artifact from atelectasis. Bibasilar dependent subpleural groundglass opacities and linear densities most likely represent atelectasis in the absence of additional clinical history. Subpleural cysts are noted in the upper lungs bilaterally, favored to represent paraseptal emphysema. The thyroid demonstrates normal CT morphology. There is no hilar or mediastinal lymphadenopathy. Heart size is normal without pericardial effusion. The great vessels demonstrate normal course and caliber with scattered atheromatous aortic calcifications. The trachea and central airways are patent. The esophagus follows a normal course and caliber. No axillary lymphadenopathy. Extrathoracic soft tissues are within normal limits. Multilevel degenerative disc disease of the thoracic spine is noted. There are degenerative changes of the bilateral acromioclavicular and left glenohumeral joints. Abdomen/Pelvis: Coarse calcifications are again noted in the pancreas, a finding most commonly associated with chronic pancreatitis. The liver, gallbladder, spleen, adrenal glands, and kidneys are normal in appearance. Hollow viscus organs demonstrate normal course and caliber. There is no free intraperitoneal air or fluid. The appendix is well-visualized and is normal. There is no abdominopelvic lymphadenopathy. The abdominal mesentery and great vessels are unremarkable. The ureters and urinary bladder are normal appearance without evidence of obstructive uropathy. The prostate is mildly enlarged and contains coarse calcifications. The osseous structures are not significantly changed. There are no aggressive osseous lesions. Impression: 1. No CT evidence of acute cardiopulmonary or intra-abdominal/pelvic pathology. 2. The left lower lobe nodule noted on the comparison CT is not present on this exam. 3. The borderline wall thickening of the colon noted on the comparison examination is not present on this exam. 4. The remainder of the abdomen/pelvis exam is not significantly changed. [address] [facility]. [facility] [address] PH: DD: [phone] FAX: [phone] ~DIAGNOSTIC IMAGING REPORT~ Patient: Osvaldo Perez : 1960 Sex: M Age: 57 Exam Name: CT Abdomen/Pelvis W Contrast Exam Date: 03/12/18 Report # : [id number] CPT Code: 04008 EMR/MR #: [id number] Ordering: Brayan Todd Admiting: Primary: Mookie Dumont MD Attending: Signed CT Chest W Contrast 03/12/2018 2:04 PM History: [facility] [place] [facility] ^lung nodule Comparison: CT abdomen/pelvis 03/11/2018. Technique: Multiple sequential images were obtained from the thoracic inlet through the lesser trochanters in the axial, coronal, and sagittal planes. A total of 75 mL of Isovue intravenous contrast material was administered intravenously. Oral contrast material was not also employed. There was no immediate complication. Findings: Chest: There is no pneumothorax, consolidation, or pleural effusion. The left lower lobe pulmonary nodule noted in the prior exam is no longer present, most likely representing artifact from atelectasis. Bibasilar dependent subpleural groundglass opacities and linear densities most likely represent atelectasis in the absence of additional clinical history. Subpleural cysts are noted in the upper lungs bilaterally, favored to represent paraseptal emphysema. The thyroid demonstrates normal CT morphology. There is no hilar or mediastinal lymphadenopathy. Heart size is normal without pericardial effusion. The great vessels demonstrate normal course and caliber with scattered atheromatous aortic calcifications. The trachea and central airways are patent. The esophagus follows a normal course and caliber. No axillary lymphadenopathy. Extrathoracic soft tissues are within normal limits. Multilevel degenerative disc disease of the thoracic spine is noted. There are degenerative changes of the bilateral acromioclavicular and left glenohumeral joints. Abdomen/Pelvis: Coarse calcifications are again noted in the pancreas, a finding most commonly associated with chronic pancreatitis. The liver, gallbladder, spleen, adrenal glands, and kidneys are normal in appearance. Hollow viscus organs demonstrate normal course and caliber. There is no free intraperitoneal air or fluid. The appendix is well-visualized and is normal. There is no abdominopelvic lymphadenopathy. The abdominal mesentery and great vessels are unremarkable. The ureters and urinary bladder are normal appearance without evidence of obstructive uropathy. The prostate is mildly enlarged and contains coarse calcifications. The osseous structures are not significantly changed. There are no aggressive osseous lesions. Impression: 1. No CT evidence of acute cardiopulmonary or intra-abdominal/pelvic pathology. 2. The left lower lobe nodule noted on the comparison CT is not present on this exam. 3. The borderline wall thickening of the colon noted on the comparison examination is not present on this exam. 4. The remainder of the abdomen/pelvis exam is not significantly changed. Dictated By: 03/12/18 1559 YUSUF LEWIS MD. Signed By: Patient Problems - Patient Problem List (1) Abdominal pain Current Visit: Yes Status: Acute Code(s): R10.9 - Unspecified abdominal pain Category: Medical (2) Diabetes mellitus Current Visit: Yes Status: Acute Code(s): E11.9 - Type 2 diabetes mellitus without complications Qualifiers: Diabetes mellitus type: type 2 Diabetes mellitus complication status: without complication Category: Medical (3) Tobacco abuse Current Visit: Yes Status: Acute Code(s): Z72.0 - Tobacco use Category: Medical (4) Amphetamine abuse Current Visit: Yes Status: Acute Comment: patient admitted relapse recently. Code(s): F15.10 - Other stimulant abuse, uncomplicated Category: Medical
[2018-03-13] MEDS ORDERED: LIPASE/PROTEASE/AMYLASE 1 EACH CAPSULE PO SCH (17:00)
== END 2018-03-13 15:41 | disposition home or self-care (01) ==
LOC: MED/SURG 13:43 → ER 13:43
PROVIDERS: ADMIT Family Medicine; ATTEND Family Medicine

== ENCOUNTER 2019-01-09 15:01 | Observation (INO) ==
[2019-01-09] MEDS ORDERED: ASPIRIN 81 MG (BABY) CHEWABLE TABLET PO ONE (15:22)
[2019-01-09] MEDS ORDERED: Sodium Chloride 0.9% 1,000 ML PRIMARY IV ONE (15:22)
[2019-01-09] MEDS ORDERED: NITROGLYCERIN 0.4 MG SL TAB (BOTTLE OF 3) SL PRN ×2 (15:22→17:29)
[2019-01-09] MEDS ORDERED: IPRATROPIUM/ALBUTEROL SULFATE 3 ML NEB NEB ONE (15:27)
[2019-01-09 15:52] LABS: BASOPHILS % (AUTO) 1.4 % (0-1); EOSINOPHILS % (AUTO) 2.7 % (0-8); Hematocrit [HCT] 43.2 % (42.0-52.0); LYMPHOCYTES # (AUTO) 1.82 10*3/uL; MEAN CORPUSCULAR HGB CONC 34.7 g/dL (33-37); MEAN CORPUSCULAR VOLUME 91.3 FL (80-90); MEAN PLATELET VOLUME 10.2 FL (7.4-12.2); MONOCYTES # (AUTO) 0.37 10*3/UL (0.3-0.8); MONOCYTES % (AUTO) 7.2 % (5-15); NEUTROPHILS # (AUTO) 2.74 10*3/UL; RED BLOOD COUNT 4.73 10^6/uL (4.70-6.10)
[2019-01-09 15:53] LABS: BASOPHILS # (AUTO) 0.07 10*3/UL; EOSINOPHILS # (AUTO) 0.14 10*3/UL; PLATELET MORPHOLOGY COMMENT NORMAL MORPHOLOGY (NORM); RBC MORPHOLOGY COMMENT NORMAL MORPHOLOGY (NORM); WBC MORPHOLOGY COMMENT NORMAL MORPHOLOGY (NORM)
[2019-01-09 15:55] LABS: BLOOD UREA NITROGEN 18 mg/dL (7-22); SERUM ALBUMIN 4.2 g/dL (3.5-4.8)
[2019-01-09 16:47] LABS: VENOUS PH 7.4 (7.32-7.42)
[2019-01-09] MEDS ORDERED: LIDOCAINE W/ SODIUM BICARB 0.5 ML SYR SUBD PRN (17:29)
[2019-01-09] MEDS ORDERED: CALCIUM CARBONATE 500 MG (TUMS) CHEWABLE TABLET PO PRN (17:29)
[2019-01-09] MEDS ORDERED: FUROSEMIDE 40 MG TABLET PO SCH (17:45)
[2019-01-09] MEDS: AMIODARONE 200 MG TABLET PO SCH (18:39)
[2019-01-09] MEDS: METOPROLOL SUCCINATE 50 MG SR 24H TABLET PO SCH (18:39)
[2019-01-09] MEDS: Apixaban 5 MG TABLET PO SCH (20:07)
[2019-01-09] MEDS ORDERED: metFORMIN 500 MG TABLET PO SCH (21:00)
[2019-01-09] MEDS ORDERED: KETOROLAC 15 MG/1 ML VIAL IVP PRN (21:38)
[2019-01-09] MEDS ORDERED: Insulin Glargine SoloStar Inj 100 UNIT/ML INSULN.PEN SUBCUT SCH (21:45)
[2019-01-09] MEDS: Insulin Lispro Flexpen 300 UNIT/3 ML INSULN.PEN SUBCUT SCH (21:59)
[2019-01-10 00:07] LABS: OPIATE SCREEN,URINE NEGATIVE (NEG); URINE SAMPLE TYPE CLEAN CATCH URINE; URINE SPECIFIC GRAVITY - MAN 1.015
[2019-01-10 00:08] LABS: AMPHETAMINE SCREEN POSITIVE (NEG); CANNABINOID SCREEN,URINE NEGATIVE (NEG); COCAINE SCREEN NEGATIVE (NEG); METHADONE URINE SCREEN NEGATIVE (NEG); METHAMPHETAMINES SCREEN,URINE POSITIVE (NEG)
[2019-01-10 05:58] LABS: HEMOGLOBIN A1C 10.05 % (4.2-6.0)
[2019-01-10 06:08] LABS: BLOOD UREA NITROGEN 25 mg/dL (7-22); BUN/CREATININE RATIO 22.72 (6-20); CHOL/HDL RATIO 4.39 RATIO (0-4.0); SERUM ALBUMIN 3.5 g/dL (3.5-4.8)
[2019-01-10] MEDS: FUROSEMIDE 40 MG TABLET PO SCH ×2 (07:07→13:43)
[2019-01-10] MEDS: Insulin Lispro Flexpen 300 UNIT/3 ML INSULN.PEN SUBCUT SCH ×3 (08:17→15:29)
[2019-01-10] MEDS: Apixaban 5 MG TABLET PO SCH (08:42)
[2019-01-10 11:25] VITALS: TEMP 97.2
[2019-01-10] MEDS: METOPROLOL SUCCINATE 50 MG SR 24H TABLET PO SCH (13:59)
[2019-01-10] MEDS: AMIODARONE 200 MG TABLET PO SCH (14:02)
[2019-01-10 15:56] VITALS: RESP 21
[2019-01-10 15:58] VITALS: BP 114/68
[2019-01-10] MEDS ORDERED: ACETAMINOPHEN 325 MG TABLET PO PRN (16:25)
[2019-01-10 17:07] VITALS: O2SAT 97
== END 2019-01-10 18:25 | disposition home or self-care (01) ==
LOC: ER 15:01 → MED/SURG 15:01
PROVIDERS: ADMIT Internal Medicine; ATTEND Internal Medicine